=== PATIENT | male | born 1940 | race Caucasian/White ===

== ENCOUNTER 2016-09-21 06:56 | Day surgery (SDC) | payer MEDICARE, BC ==
[~2016-09-21 06:56] MED LIST: ASPIRIN81 M1 PO; BENADRYL25 M3 PO; CIPRO500 M2 PO; CIPROFLOXACIN500 M3 PO; CLARITIN10 M6 PO; FLOMAX0.4 M1 PO; GLUCOPHAGE1000 M1 PO; HYDROCODON-ACE1 EA16 PO; LIPITOR40 M1 PO; MULTIVITAMINS1 EAC6 PO; NORCO 5-325 TA1 EACH PO; OCUVITE EYE +1 EACH PO; PRINIVIL20 M1 PO; PROSCAR5 M1 PO; TOPROL XL25 M1 PO; VITAMIN D400 UNI4 PO; ZOFRAN ODT4 MG PO; ZOFRAN4 M2 PO
== END 2016-09-21 11:40 ==
LOC: SRG 06:56 → SHSC 07:45 → ORW 09:08 → PACU 10:08 → SHSC 10:40
PROC: 0TF4XZZ Fragmentation in Left Kidney Pelvis, External Approach (ICD-10-PCS; principal; 2016-09-21)
DX: N20.0 Calculus of kidney (principal); I10 Essential (primary) hypertension; E11.9 Type 2 diabetes mellitus without complications; E78.00 Pure hypercholesterolemia, unspecified; E78.5 Hyperlipidemia, unspecified; Z87.891 Personal history of nicotine dependence; Z87.19 Personal history of other diseases of the digestive system; Z90.89 Acquired absence of other organs; Z95.0 Presence of cardiac pacemaker; Z79.899 Other long term (current) drug therapy; Z85.46 Personal history of malignant neoplasm of prostate; Z90.79 Acquired absence of other genital organ(s); Z98.890 Other specified postprocedural states
CPT/HCPCS: J0744